=== PATIENT | female | born 1975 | race Two or more races ===

== ENCOUNTER 2025-04-21 14:07 | Outpatient (RCR) | payer MEDICAID, SELFPAY ==
--- NOTE | 2025-04-21 14:37 | PTNOTE_ITS ---
PT OP Initial Eval Patient Information Outpatient Physical Therapy Treatment Date: 04/21/25 Visit Reasons: PLANTAR FASCIAL FIBROMATOSIS Medical Diagnosis: M72.2 Treatment Dx #1: R foot pain Treatment Dx #2: R heel pain Start of Care: 04/21/25 Date of Onset: 1 yr ago Smoking Status Smoking Status: Never smoker Initial Assessment Subjective: Pt is 50 yr old [place] speaking female who c/o R heel pain x1 yr. She got an injection in the heel last month which helped reduce the pain. Prior to the injection she had more pain with walking and standing >10 mins. PMH: none reported Imaging: Xray with provider Pt goal: less pain Objective: R ankle AROM: DF: 15 deg ?Plantarflexion: full Inv/Eversion: full Strength: Ankle DF 4/5, PF: 4/5 Heel raise B x1 to 50% height TTP: min of plantar fascia Sensation: intact to light touch of R foot Assessment: Pt presentation consistent with referring Dx. Pt is not having significant pain in the heel due to the pain injection. Once the injection wears off, pt will need skilled therapy to meet goals and has fair rehab potential. Short Term and Group Home Goals 1. Independent with HEP ? 2. Decreased TTP from min to none of incision scars ? 3. Improved ambulatory distance to community distances with symmetrical gait pattern x30 mins 4. Pt will heel raise x10 to full height Treatment Plan The heel isn't hurting today much so she will schedule first therapy Rx in 2 weeks for in case the injection has worn off. ? 1. Manual therapy ? 2. Therex ? 3. Modalities as indicated, moist heat, ice, estim Frequency and Duration: 2x a week for 12 visits plus the evaluation. Certification Dates: 04/21/25 to 07/20/25 Procedure Charges OP PT Eval Mod Complex 30 minutes: Yes
== END 2025-05-08 23:59 | disposition home or self-care (01) ==
LOC: CPTX 14:07
PROVIDERS: PCP Podiatrist; Referring Provider Podiatrist; Visit Provider Podiatrist
DX: M79.671 Pain in right foot (principal)
CPT/HCPCS: 97162